=== PATIENT | male | born 1965 | race Caucasian/White ===

== ENCOUNTER 2020-03-10 10:01 | Emergency (ER) | payer MEDICAID ==
[~2020-03-10] VITALS: Ht 175.3 cm; Wt 104.5 kg
[~2020-03-10 10:01] MED LIST: AMOX-580 PO; GABA600T13 PO; HYDR-4383 PO; LURA60TA2 PO; METH500T PO; QUET-1 PO
[2020-03-10 10:14] VITALS: BP 167/88
[2020-03-10] MEDS ORDERED: KETO30CR21 TOP (11:04)
== END 2020-03-10 11:15 | disposition home or self-care (01) ==
LOC: ER 10:02
DX: R21 Rash and other nonspecific skin eruption (principal); R05 Cough; R11.10 Vomiting, unspecified; I25.10 Atherosclerotic heart disease of native coronary artery without angina pectoris; I10 Essential (primary) hypertension; I25.2 Old myocardial infarction; F31.9 Bipolar disorder, unspecified; F20.9 Schizophrenia, unspecified; F17.200 Nicotine dependence, unspecified, uncomplicated; Z90.49 Acquired absence of other specified parts of digestive tract; Z98.61 Coronary angioplasty status; Z72.89 Other problems related to lifestyle; Z59.0 Homelessness; Z56.0 Unemployment, unspecified; Z88.8 Allergy status to other drugs, medicaments and biological substances; Z79.899 Other long term (current) drug therapy
CPT/HCPCS: 99284

== ENCOUNTER 2021-06-16 13:44 | Day surgery (SDC) | payer MEDICARE, MEDICAID ==
[2021-06-14 14:10] LABS: BASOPHILS # (AUTO) 0.1 X10'3 (0-0.2); BASOPHILS % (AUTO) 0.8 % (0-1); EOSINOPHILS # (AUTO) 0.1 X10'3 (0-0.9); EOSINOPHILS % (AUTO) 1.7 % (0-6); LYMPHOCYTES % (AUTO) 24.7 % (21-51); MEAN CORPUSCULAR HEMOGLOBIN 30.8 PG (27.0-31.0); MEAN CORPUSCULAR HGB CONC 34.1 g/dL (33.0-36.5); MEAN CORPUSCULAR VOLUME 90.4 FL (78-98); MONOCYTES # (AUTO) 0.6 X10'3 (0-0.9); MONOCYTES % (AUTO) 7.2 % (2-12); NEUTROPHILS # (AUTO) 5.4 X10'3 (1.8-7.7); NEUTROPHILS % (AUTO) 65.6 % (42-75); PRE OP HEMATOCRIT 41.6 % (42.0-52.0); PRE OP HEMOGLOBIN 14.2 g/dL (14.0-17.9); PRE OP PLATELET COUNT 293 X10'3 (140-440); RED BLOOD COUNT 4.61 X10'6 (4.70-6.10); RED CELL DISTRIBUTION WIDTH 13.6 % (11.5-14.5)
[2021-06-14 14:24] LABS: ALBUMIN 3.7 G/DL (3.4-5.0); ALBUMIN/GLOBULIN RATIO 1.2 (1.1-1.5); ALKALINE PHOSPHATASE 68 IU/L (46-116); BLOOD UREA NITROGEN 10 MG/DL (7-18); BUN/CREATININE RATIO 9.9 (5.4-32.0); CHLORIDE 105 MMOL/L (99-107); CREATININE 1.01 MG/DL (0.60-1.10); PRE OP ALT 47 U/L (30-65); PRE OP ANION GAP 14 (8-16); PRE OP AST 21 U/L (10-37); PRE OP BILIRUB, TOTAL 0.2 MG/DL (0.0-1.0); PRE OP GLUCOSE 106 MG/DL (70-104); PRE OP POTASSIUM 3.9 MMOL/L (3.4-5.1); PRE OP SODIUM 142 MMOL/L (135-145); TOTAL CARBON DIOXIDE 23.1 MMOL/L (24-32); TOTAL PROTEIN 6.9 G/DL (6.4-8.2); eGFR 76 ML/MIN
[~2021-06-16] VITALS: Ht 177.8 cm; Wt 97.0 kg
[2021-06-16] VITALS (14 sets, daily range): BP systolic 154–179; BP diastolic 79–100
[~2021-06-16 13:44] MED LIST changes: -AMOX-580 PO; -GABA600T13 PO; -HYDR-4383 PO; -LURA60TA2 PO; -METH500T PO; +NO HOME MEDS; -QUET-1 PO; +cefazolin/dext.iso 2gm/50ml IV ONE; +famotidine 20mg tablet PO ONE; +ringers solution, lacted 1,000 ML IV SCH
[2021-06-16] MEDS ORDERED: LIDOcaine 1% 30ml preserv. free vial ONE (14:48)
[2021-06-16] MEDS ORDERED: BUPIVAcaine/PF 2.5 mg/ml (0.25%) 30ml vial ONE (14:48)
[2021-06-16] MEDS ORDERED: morphine 2 MG/ML inj. syringe IV PRN (15:25)
[2021-06-16] MEDS ORDERED: proCHLORperazine 10 MG/2 ml inj IV PRN (15:25)
[2021-06-16] MEDS ORDERED: ondansetron/PF 4mg/2ml inj IV PRN (15:25)
[2021-06-16] MEDS ORDERED: ringers solution, lacted 1,000 ML IV SCH (15:25)
[2021-06-16] MEDS ORDERED: morphine 4 MG/ML inj SYRINge IV PRN (15:25)
[2021-06-16] MEDS ORDERED: meperidine/PF 25mg/ml syringe IV PRN ×3 (15:25)
[2021-06-16] MEDS ORDERED: sevoflurane 250ml liquid IH ONE (15:37)
[2021-06-16] MEDS ORDERED: fentaNYL/PF 50MCG/1 ML 2ML syringe ONE ×2 (15:40→15:58)
[2021-06-16] MEDS ORDERED: rocuronium 10mg/ml inj IV ONE (15:41)
[2021-06-16] MEDS ORDERED: propofol inj 20 ML IV ONE (15:41)
[2021-06-16] MEDS ORDERED: midazolam 1 mg/ML 2ml injection ONE (15:41)
[2021-06-16] MEDS ORDERED: BUPIVACAINE liposomal/PF 13.3 MG/ML vial IM ONE (15:58)
[2021-06-16] MEDS ORDERED: BUPIVAcaine/PF 2.5mg/ml (0.25%) 10ml vial IJ ONE (16:22)
[2021-06-16] MEDS ORDERED: labetalol 20mg/4ml (5mg/ml) syringe IV ONE (16:29)
[2021-06-16] MEDS ORDERED: neostigmine methylsulfate 1 MG/ML 10ml vial ONE (16:41)
[2021-06-16] MEDS ORDERED: glycopyrrolate 0.2mg/ml inj ONE (16:42)
[2021-06-16] MEDS ORDERED: oxyCODONE/APAP 5-325mg tablet PO PRN ×2 (16:55)
--- NOTE | 2021-06-16 16:58 | NUR ---
Received from OR via [facility], accompanied by Anesthesiologist DR LUONG and report given by Anesthesiologist. PT DROWSY, DENIES PAIN. ABDOMINAL BINDER ON AND IN PLACE, CDI. Addendum: 06/16/21 at 1719 by Greta Westfall RN Amended: Links added.
[2021-06-16] MEDS ORDERED: ketorolac trometh. 30mg/ml inj. IV ONE (18:45)
--- NOTE | 2021-06-16 19:08 | NUR ---
PAIN IMPROVED AFTER RECEIVING TORADOL INJECTION. D/C INSTRUCTIONS GIVEN AND GONE OVER W/PT WHO VERBALIZED UNDERSTANDING. PT D/CD TO HOME VIA W/C TO PRIVATE VEHICLE W/O INCIDENT. Addendum: 06/16/21 at 1933 by Greta Westfall RN Amended: Links added.
== END 2021-06-16 19:08 | disposition home or self-care (01) ==
LOC: PAS 13:44
PROVIDERS: ATTEND Surgery
DX: K43.0 Incisional hernia with obstruction, without gangrene (principal); I10 Essential (primary) hypertension; I25.10 Atherosclerotic heart disease of native coronary artery without angina pectoris; E78.5 Hyperlipidemia, unspecified; F32.9 Major depressive disorder, single episode, unspecified; F41.9 Anxiety disorder, unspecified; F17.210 Nicotine dependence, cigarettes, uncomplicated; E66.9 Obesity, unspecified; Z68.30 Body mass index [BMI] 30.0-30.9, adult; Z98.890 Other specified postprocedural states; Z79.82 Long term (current) use of aspirin; Z79.899 Other long term (current) drug therapy; Z20.822 Contact with and (suspected) exposure to COVID-19; Z86.73 Personal history of transient ischemic attack (TIA), and cerebral infarction without residual deficits; Z72.89 Other problems related to lifestyle
CPT/HCPCS: 36415; 49655; 64488; 80053; 82948; 85025; 87635; 93005; C1781; C9290; C9803; J1885; J2001; J2250; J2704; J2710; J3010; J3490; Z7506; Z7508; Z7512; A4215; A4618; J7120

== ENCOUNTER 2022-03-26 14:01 | Emergency (ER) | payer MEDICARE, MEDICAID ==
[~2022-03-26] VITALS: Ht 175.3 cm; Wt 90.0 kg
[~2022-03-26 14:01] MED LIST changes: -cefazolin/dext.iso 2gm/50ml IV ONE; -famotidine 20mg tablet PO ONE; -ringers solution, lacted 1,000 ML IV SCH
[2022-03-26 14:12] VITALS: BP 187/118
[2022-03-26] MEDS ORDERED: IBUP-1986 PO (14:59)
[2022-03-26] MEDS ORDERED: AMOX-117 PO (14:59)
[2022-03-26] MEDS ORDERED: ketorolac trometh inj. 60 MG/2 ML VIAL IM ONE (15:00)
[2022-03-26] MEDS ORDERED: amox tr/potassium clavulanate 875/125mg TAB PO ONE (15:00)
== END 2022-03-26 15:50 | disposition home or self-care (01) ==
LOC: ER 14:01
DX: K08.89 Other specified disorders of teeth and supporting structures (principal); R51.9 Headache, unspecified; M54.2 Cervicalgia; I25.10 Atherosclerotic heart disease of native coronary artery without angina pectoris; I10 Essential (primary) hypertension; I25.2 Old myocardial infarction; F31.9 Bipolar disorder, unspecified; F20.9 Schizophrenia, unspecified; Z90.89 Acquired absence of other organs; Z98.890 Other specified postprocedural states; Z72.89 Other problems related to lifestyle; Z56.0 Unemployment, unspecified; Z59.00 Homelessness unspecified; Z88.8 Allergy status to other drugs, medicaments and biological substances; Z79.2 Long term (current) use of antibiotics; Z79.899 Other long term (current) drug therapy
CPT/HCPCS: 96372; 99283; J1885